=== PATIENT | female | born 1965 | race Caucasian/White ===

== ENCOUNTER 2023-05-29 13:50 | Emergency (ER) | payer OTHER, SELFPAY ==
[2023-05-29 14:10] VITALS: BMI 23.0
--- NOTE | 2023-05-29 15:48 | ED.GENMED ---
History of Present Illness
General
Chief Complaint: Skin Problem
Source: patient and spouse
Exam Limitations: none
Time Seen by Provider: 05/29/23 14:17
Nursing documentation reviewed up to this point in time: agreed with
Travel History
Have you had any contact with someone who has COVID-19?: No
Do you have any symptoms of coronavirus? Fever > 100 degrees, chills, cough, shortness of breath, sore throat, loss of taste or smell, muscle aches, or headache?: No
History of Present Illness
History of Present Illness:
57-year-old female past ministry of anxiety bipolar disorder depression presenting to the emergency department today with concerns of right sided pinky finger redness and swelling to the distal finger after getting her nails done a few days ago.
Symptoms ongoing over the past few days. Denies additional concerns otherwise.
Past History
Past History
ED Past Medical History: Psychiatric (anixiet/depression, ADHD, PTSD, bipolar illness but no meds) and Other
ED Past Surgical History: None and Orthopedic
Social History
Tobacco: Non-smoker
Alcohol: Occasional
Personal:
Living: with family
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
Family History
Family History: Other (Alcoholism, bipolar)
Review of Systems
Review of Systems
Allergies reviewed?: Yes
All Other Systems: ROS reviewed and negative except as documented in HPI and ROS
Phy Exam
Physical Exam
Physical Exam:
GENERAL: Alert , in no apparent distress
EYE: pupils equal and reactive
NECK: Supple, no significant adenopathy.
ENT: o/p clr, mmm.
CARDIAC: Regular rate and rhythm .
LUNGS: Clear breath sounds bilaterally, no acute respiratory distress, no wheezes/rales/rhonchi
ABDOMEN: Soft, without focal tenderness, no r/g, no cvat
NEUROLOGICAL: Alert and oriented, no focal neuro deficits
SKIN: Warm and dry, skin intact.
MUSCULOSKELETAL: Swelling to the distal right sided pinky finger on the lateral aspect next to the nailbed. Mild tenderness to the area as well. No edema, well perfused.
PSYCH: Normal and appropriate interaction.
Course
Vital Signs
Initial and Last Documented VS:
Initial Vital Signs
Temp Pulse Resp Pulse Ox
98.4 F 76 16 98
05/29/23 13:56 05/29/23 13:56 05/29/23 13:56 05/29/23 13:56
Last Documented Vital Signs
Temp Pulse Resp Pulse Ox
98.4 F 76 16 98
05/29/23 13:56 05/29/23 13:56 05/29/23 13:56 05/29/23 13:56
Procedures
Incision/Drainage/Joint Aspiration
Right Fifth Finger:
Anethesia: 1% Lidocaine and other (Digital block)
Preparation: cleaned with alcohol wipe
Type of procedure: incise
Nature of site: abscess
Description of abscess: less than 3cm
Loculations broken up: No
How much fluid was obtained?: scant amount
Fluid description: purulent and bloody
Treatment: left open for drainage
MDM/Problems Addressed
MDM/Problems Addressed:
57-year-old female presenting to the emergency department today with concerns of swelling discomfort to the right distal pinky finger. Appears be consistent with ingrown nail associated paronychia. Incision and drainage performed with scant amount
of purulence. Otherwise patient generally well-appearing advised for topical antibiotic ointment and close outpatient follow-up. Return precautions given.
*Critical Care Note
Total Time (30-74mins, 75-104mins- exclusive of procedures): Not Applicable
ED Attending Note
-
Portions of this chart may have been created with voice recognition software.� Occasional wrong word or��sound alike� substitutions may have occurred due to the inherent limitations of voice recognition software.
Discharge Plan
Departure
Patient Disposition: Home (Routine Discharge)
Date of Disposition: 05/29/23
Time of Disposition: 15:48
Patient with high blood pressure during this ER visit?: No
Condition: Good
Covid-19: Not Applicable
Discharge Problem:
Ingrown nail, Paronychia
Instructions: Paronychia (DC)
Prescriptions:
New
mupirocin 2 % ointment
1 applic topical BID Qty: 15 0RF
No Action
dextroamphetamine-amphetamine [Adderall XR] 20 MG capsule,extended release 24hr
25 mg PO PRN PRN (Reason: adhd)
Referrals:
Phuong Monreal DO [Family Provider] -
Activity Restrictions/Additional Instructions:
You came to the emergency department today with concerns of an issue with your finger. This was incised here please keep the area clean covered and the chlorhexidine wash. We also use mupirocin ointment to the area. Return to the emergency
department any worsening, new or concerning symptoms.
Interventions
Interventions:
*Risk Screen - Suicide Last Done: 05/29/23 14:10
*General Assessment Last Done: 05/29/23 14:10
*Neglect/Abuse Screening Last Done: 05/29/23 14:10
ED- Fall Risk Assessment Last Done: 05/29/23 14:10
*ED COVID-19 Vaccine History Last Done: 05/29/23 13:56
*Nursing Disposition Last Done: 05/29/23 15:58
ED-Skin Assessment Last Done: 05/29/23 14:10
== END 2023-05-29 15:58 | disposition home or self-care (01) ==
LOC: EMR 13:50
PROVIDERS: EMERGENCY PHYSICIAN Emergency Medicine; FAMILY PHYSICIAN Family Medicine
DX: L60.0 Ingrowing nail (principal); L03.031 Cellulitis of right toe; F31.9 Bipolar disorder, unspecified; F41.9 Anxiety disorder, unspecified; F90.9 Attention-deficit hyperactivity disorder, unspecified type; F43.10 Post-traumatic stress disorder, unspecified
CPT/HCPCS: 99282; 10060

== ENCOUNTER → 2024-02-14 13:33 | Outpatient (REF) | payer OTHER, SELFPAY | LOC: HWWDC 13:33 | PROVIDERS: ATTENDING PHYSICIAN Family Medicine | DX: Z12.31 Encounter for screening mammogram for malignant neoplasm of breast (principal) | CPT/HCPCS: 77063; 77067 ==

== ENCOUNTER → 2025-03-18 09:50 | Outpatient (REF) | payer OTHER, SELFPAY | LOC: HWWDC 09:50 | PROVIDERS: ATTENDING PHYSICIAN Family Medicine | DX: Z12.31 Encounter for screening mammogram for malignant neoplasm of breast (principal) | CPT/HCPCS: 77063; 77067 ==